=== PATIENT | female | born 1990 | race Caucasian/White ===

== ENCOUNTER 2021-04-25 12:14 | Outpatient (RCR) | payer BC, SELFPAY ==
[2021-04-18 15:43] VITALS: BP 128/75; PULSE 76
--- NOTE | ~2021-04-25 | US_ITS ---
EXAMINATION: US OB BPP wo non-stress EXAM DATE: 04/25/2021 13:30 INDICATION: Nonreactive stress test. 3rd trimester. TECHNIQUE: Pelvic obstetrical transabdominal sonogram was performed by a technologist. There are mu ltiple grayscale and Doppler images available for interpretation. Comparison is made to prior examina tion from 04/18/2021. FINDINGS: There is a single fetus identified in vertex presentation with a heart rate of 144 beats pe r minute. The placenta is located in the anterior position. There is no sonographic evidence of retr oplacental hemorrhage identified. BIOPHYSICAL PROFILE (performed by the technologist) breathing (30 sec sustained breathing in 30 minutes): 2 out of 2 movement (3 gross body movements in 30 minutes): 2 out of 2 tone (one episode of kddeetk-eqoerdmxb-ebxwbam limb movement): 2 out of 2 Amniotic fluid pocket (2 cm): 2 out of 2 Total score: 8 out of 8 IMPRESSION: 1. Single fetus with heart rate of 144 bpm. 2. Normal biophysical profile score of 8 out of 8. Reviewed, dictated and finalized at location B.
--- NOTE | ~2021-04-25 | US_ITS ---
EXAMINATION: US OB BPP wo non-stress EXAM DATE: 04/18/2021 15:43 INDICATION: Nonreactive stress test. 3rd trimester. TECHNIQUE: Pelvic obstetrical transabdominal sonogram was performed by a technologist. There are mu ltiple grayscale and Doppler images available for interpretation. There are no earlier studies of th is gestation for comparison. FINDINGS: There is a single fetus identified in vertex presentation with a heart rate of 141 beats pe r minute. The placenta is located in the fundal position. There is no sonographic evidence of retrop lacental hemorrhage identified. BIOPHYSICAL PROFILE (performed by the technologist) breathing (30 sec sustained breathing in 30 minutes): 2 out of 2 movement (3 gross body movements in 30 minutes): 2 out of 2 tone (one episode of mtdlcnk-eovgygvhw-usqhejx limb movement): 2 out of 2 Amniotic fluid pocket (2 cm): 2 out of 2 Total score: 8 out of 8 IMPRESSION: 1. Single fetus with heart rate of 141 bpm. 2. Normal biophysical profile score of 8 out of 8. Reviewed, dictated and finalized at location A.
[2021-04-25 14:05] VITALS: BP 122/74; PULSE 83
== END 2021-04-30 08:34 | disposition home or self-care (01) ==
LOC: ANHOBOP 12:14
PROVIDERS: Visit Provider Advanced Practice Midwife
DX: O26.893 Other specified pregnancy related conditions, third trimester (principal); Z3A.39 39 weeks gestation of pregnancy; Z3A.40 40 weeks gestation of pregnancy
CPT/HCPCS: 59025; 76819

== ENCOUNTER 2021-04-28 12:49 | Inpatient (IN) | payer BC, SELFPAY ==
[2021-04-28] VITALS (27 sets, daily range): BP systolic 125–176; BP diastolic 69–119; PULSE 77–120; TEMP 36.8–37.7; BMI 35.5
[2021-04-28 13:38] LABS: Basophils Percent Auto 0.4 % (0.2-1.2); Eosinophils Absolute Auto 0.2 K/mm3 (0-0.3); Eosinophils Percent Auto 2.2 % (0-4.4); Hematocrit 32.6 % (37.0-47.0); Immature Granulocyte Absolute 0.06 K/mm3 (0.00-0.031); Immature Granulocyte Percent A 0.7 % (0-0.5); Lymphocytes Absolute Auto 1.16 K/mm3 (0.9-3.2); Lymphocytes Percent Auto 14.2 % (18.3-44.2); Mean Corpuscular HGB Conc 33.7 g/dl (32-36); Mean Corpuscular Hemoglobin 30.6 pg (26-34); Mean Corpuscular Volume 90.6 fl (80-100); Mean Platelet Volume 11.3 fl (7.4-10.4); Monocytes Absolute Auto 0.7 K/mm3 (0.1-0.6); Monocytes Percent Auto 8.8 % (2.6-8.5); Neutrophils Percent Auto 73.7 % (45.5-73.1); Platelet Count Result 206 k/mm3 (150-375); Red Cell Distribution Width 13.8 % (11.5-14.5); White Blood Count 8.2 K/mm3 (4.5-10.0)
[2021-04-28] MEDS: LACTATED RINGERS 1,000 ML 125 ML IV CONT (14:07)
[2021-04-28] MEDS: OXYTOCIN 30 UNITS/NS 500 ML 30 UNITS/500 ML BAG 4 UNITS IV CONT (14:12)
[2021-04-28 14:18] LABS: Alanine Aminotransferase 16 U/L (4-35); Albumin Level 3.3 g/dL (3.5-5.1); Alkaline Phosphatase 218 U/L (38-126); Anion Gap 8 mmol/L (8-16); Aspartate Amino Transferase 30 U/L (14-36); Bilirubin,Total 0.5 mg/dL (0.2-1.3); Blood Urea Nitrogen 12 mg/dL (7-17); Calcium 9.8 mg/dL (8.4-10.2); Carbon Dioxide 20 mmol/L (22-30); Chloride 107 mmol/L (98-107); Estimated CRCL calculation 107 ml/min; Estimated Glomerular Filt Rate > 60; Glucose 104 mg/dL (65-110); Potassium 3.9 mmol/L (3.4-5.0); Sodium 135 mmol/L (137-145)
--- NOTE | 2021-04-28 14:29 | P.HP_ITS ---
Obstetrics - Admit Note Admission Note: 31 y/o G1 @ 41weeks here for induction of labor d/t post dates and elevated blood pressure. AROM moderate amount of light meconium stained fluid. record reviewed. No pertinent additions to the history and/or any subsequent changes in the physical findings that are not consistent with the exp ected course of the were found. Additions to the history and/or subsequent changes in the physical findings follow. None.
--- NOTE | 2021-04-28 14:32 | LDADM ---
This patient, [place] Seg[place], was admitted to Labor/Delivery/Recovery 105 on 04/28/21 at 12:49. Plans for labor, pain management and were discussed with patient. Patient/family oriented to hospital policies and general routines including ID bracelet, bed and alarms, visiting hours, pain management, procedures, bathroom and other care routines, personal items, smoking policy, room service/diet and guest tray routines, infant security routines, and visiting hours. Patient/Family are encouraged to report perceived risks to care and to ask questions if they do not understand what they are told or what they should do. See OBIX for further documentation.
[2021-04-28 14:53] LABS: Amphetamine Screen Urine Negative (Negative); Barbiturate Screen Urine Negative (Negative); Benzodiazepines Screen Urine Negative (Negative); Cannabinoid Screen Urine Positive (Negative); Cocaine Screen Urine Negative (Negative); Methadone Screen Urine Negative (Negative); Opiate Screen Urine Negative (Negative); Phencyclidine Screen Urine Negative (Negative)
[2021-04-29] VITALS (311 sets, daily range): BP systolic 79–158; BP diastolic 26–121; PULSE 68–141; TEMP 36.9–38.2; O2SAT 94–100
[2021-04-29] MEDS: LACTATED RINGERS 1,000 ML 125 ML IV CONT ×4 (02:52→22:46)
--- NOTE | 2021-04-29 03:14 | WPDANESEPPF ---
Anes - Initial Pre Proc Eval Procedure: labor epidural Date/Time: 04/29/21 03:14 Surgeon: Patricio Mata MD Pre Op Diagnosis: labor pain Pre Op Diagnosis: IOL Patient Data Age: 31 Gender: F Height: 1.6 m Weight: 91 kg Last Vital Signs Temp 37.2 C 04/29/21 01:30 Pulse 92 04/29/21 03:13 BP 146/86 H 04/29/21 03:13 Pulse Ox 99 04/29/21 03:14 Allergies Allergy/AdvReac Type Severity Reaction Status Date / Time Penicillins Allergy Unknown Unknown Verified 03/21/21 15:34 Home Medications Medication Instructions Recorded Confirmed Type prenat.vits,landy,bgm-kcok-wsttb 1 tablet PO DAILY 03/21/21 04/18/21 History [ #2] Laboratory Tests 04/28/21 04/28/21 04/28/21 13:10 13:24 13:24 WBC 8.2 K/mm3 K/mm3 (4.5-10.0) RBC 3.60 M/mm3 L M/mm3 (4.2-5.4) Hgb 11.0 g/dL L g/dL (12.0-15.0) Hct 32.6 % L % (37.0-47.0) MCV 90.6 fl fl (80-100) MCH 30.6 pg pg (26-34) MCHC 33.7 g/dl g/dl (32-36) RDW 13.8 % % (11.5-14.5) Plt Count 206 k/mm3 k/mm3 (150-375) MPV 11.3 fl H fl (7.4-10.4) Immature Gran % (Auto) 0.7 % H % (0-0.5) Neut % (Auto) 73.7 % H % (45.5-73.1) Lymph % (Auto) 14.2 % L % (18.3-44.2) [place] % (Auto) 8.8 % H % (2.6-8.5) Eos % (Auto) 2.2 % % (0-4.4) Baso % (Auto) 0.4 % % (0.2-1.2) Lymph # (Auto) 1.16 K/mm3 K/mm3 (0.9-3.2) [place] # (Auto) 0.7 K/mm3 H K/mm3 (0.1-0.6) Eos # (Auto) 0.2 K/mm3 K/mm3 (0-0.3) Baso # (Auto) 0.0 K/mm3 K/mm3 (0.0-0.1) Abs Immat Gran (auto) 0.06 K/mm3 H K/mm3 (0.00-0.031) Absolute Neuts (auto) 6.0 K/mm3 K/mm3 (1.3-6.7) Absolute Nucleated RBC 0.0 K/mm3 K/mm3 (0.0-0.012) Nucleated RBC % 0.0 % % (0.0-0.2) Sodium Potassium Chloride Carbon Dioxide Anion Gap BUN Creatinine Estim Creat Clear Calc Estimated GFR Glucose Uric Acid Cancelled Calcium Total Bilirubin AST ALT Alkaline Phosphatase Total Protein Albumin Urine Opiates Screen Negative (Negative) Urine Methadone Screen Negative (Negative) Ur Barbiturates Screen Negative (Negative) Ur Phencyclidine Scrn Negative (Negative) Ur Amphetamine Screen Negative (Negative) U Benzodiazepines Scrn Negative (Negative) Urine Cocaine Screen Negative (Negative) U Cannabinoids Screen Positive A (Negative) RPR Blood Type Antibody Screen 04/28/21 04/28/21 04/28/21 13:24 13:24 13:24 WBC RBC Hgb Hct MCV MCH MCHC RDW Plt Count MPV Immature Gran % (Auto) Neut % (Auto) Lymph % (Auto) [place] % (Auto) Eos % (Auto) Baso % (Auto) Lymph # (Auto) [place] # (Auto) Eos # (Auto) Baso # (Auto) Abs Immat Gran (auto) Absolute Neuts (auto) Absolute Nucleated RBC Nucleated RBC % Sodium 135 mmol/L L mmol/L (137-145) Potassium 3.9 mmol/L mmol/L (3.4-5.0) Chloride 107 mmol/L mmol/L (98-107) Carbon Dioxide 20 mmol/L L mmol/L (22-30) Anion Gap 8 mmol/L mmol/L (8-16) BUN 12 mg/dL mg/dL (7-17) Creatinine 0.70 mg/dL mg/dL (0.7-1.0) Estim Creat Clear Calc 107 ml/min ml/min Estimated GFR > 60 (59 - ) Glucose 104 mg/dL mg/dL (65-1
[2021-04-29] MEDS: CLINDAMYCIN 900 MG/D5W 50 ML 900 MG/50 ML PIGGYBACK 50 MG IVPB ×3 (05:57→22:46)
[2021-04-29 12:35] LABS: Rapid Plasma Reagin Non-Reactive (NonReactive)
[2021-04-29] MEDS: ONDANSETRON INJ 4 MG/2 ML VIAL IV PUSH (12:59)
[2021-04-29] MEDS: OXYTOCIN 30 UNITS/NS 500 ML 30 UNITS/500 ML BAG 6 UNITS IV CONT (13:13)
[2021-04-30] VITALS (140 sets, daily range): BP systolic 90–177; BP diastolic 57–135; PULSE 74–119; RESP 11–18; TEMP 36.6–37.1; O2SAT 92–100
--- NOTE | 2021-04-30 04:28 | WPDANESEFPP ---
Anes - Eval Final PreProcedure Day of Procedure 04/30/21 04:28 Patient weight: obese Heart: regular rate and rhythm Lungs: clear to auscultation and normal air movement Airway: Mallampati scale Neurological: alert and oriented Last oral intake: >/= 8 hours ASA classification: II Emergent: no Anesthetic plan: proceed Anesthesia type and monitoring: regional epidural and standard monitoring Informed Consent: The patient's anesthetic plan and its attendant risks and benefits were discussed with the patient/family/POA. Questions were solicited and answers provided to the satisfaction of the patient/family/POA.
--- NOTE | 2021-04-30 04:35 | WPDHPUPDATE1 ---
History and Physical Update Update Date/Time: 04/30/21 04:35 History and Physical has been reviewed, including an updated exam of the patient. There are NO changes in the patient's condition. Risks, benefits, and alternatives have been discussed and questions answered. Patient agrees to proceed with procedure.\ Briefly, G1 at 41+ weeks with IOL for 2+ days. Has been up to 40mu of pitocin 3x, most recently for 3+ hours and not progressing past 8cm. Cervix now edematous. On antibiotics for prolonged rupture. FHT category 1, no decels. Afebrile. Previously declined CS but now ready to proceed. Discussed RBA of delivery. QUestions answered, pt consented.
--- NOTE | 2021-04-30 05:39 | P.PCNOB_ITS ---
OB - Delivery Note Procedure Delivery date: 04/30/21 Procedure: Procedures Operation Date: 04/30/21 04:30 <No data on this case meets the specified criteria> Primary section events: Prolonged Rupture of Membrane and Meconium Stained Fluid Intrapartal events: Prolonged Labor > 20 hours and Failure to Progress in Labor Induction method: AROM, per pitocin protocol and per cervidil protocol Delivery monitor: external FHT and external uterine Route of delivery: Specimen: Yes (placenta) Quantitative Blood Loss (ml): 2,225 Anesthesia type: Epidural Disposition: floor Complications: none Narrative: The patient was taken to the OR and had her epidural anesthesia dosed adequately. She was placed in dorsal supine position with left lateral tilt. SCDs and huitron had been placed. She was prepped and draped in the normal sterile fashion. A Pfannensteil skin incision was made and carried through to the underlying l michelle of fascia. The fascia was incised in the midline and then extended laterally using August scissors. The muscles were in the midline and the peritoneum was entered bluntly. The peritoneal incision was extended inferiorly and superiorly with care to avoid the bladder. The bladder blade was then inserted, the vesicouterine peritoneum was grasped, incised with Metzenbaum scissors, and a bladder flap created. The bladder blade was reinserted. A low transverse uterine incision was made with a scalpel and extended bluntly. AROM was performed and fluid was noted to be thickly meconium stained. The head was delivered, followed by the remainder of the baby. The baby's oropharynx was suctioned. After 30 seconds, the cord was clamped and cut and the infant was handed off. Cord blood was obtained and the placenta was then removed manually. The uterus was exteriorized. A moist lap sponge was used to curette the endometrium. The uterine incision was then closed with one layer of 0-Vicryl in a running, locking fashion. Good hemostasis was noted. The posterior cul de sac was irrigated with normal saline and cleared of all clot and debris. The uterus was returned to the abdomen. Both lateral gutters were then irrigated. The rectus muscles were inspected and found to be hemostatic. The fascia was reapproximated using 0-Vicryl in running fashion. The subcutaneous tissue was irrigated with normal saline and made hemostatic with Bovie electrocautery. The skin was then closed with absorbable cindy. Steri strips and a bandage were applied. The uterus was evacuated. The patient tolerated the procedure very well. All counts were correct. She was taken to the recovery room in good condition. Baby Date of : 04/30/21 Time of : 05:03 Weeks of gestation at delivery: 41 Infant gender: Female Weight (pounds): 9 Weight (ounces): 7 presentation: vertex Placenta delivery description: Manual Removal cord vessel description: 3 Vessels score one minute: 7 score five minutes: 8
[2021-04-30] MEDS: miSOPROStol 200 MCG TABLET 800 MCG RECTAL (05:56)
[2021-04-30] MEDS: miSOPROStol 200 MCG TABLET 800 MCG (05:56)
[2021-04-30 06:25] LABS: Hematocrit 28.9 % (37.0-47.0); Hemoglobin 9.7 g/dL (12.0-15.0); Mean Corpuscular HGB Conc 33.6 g/dl (32-36); Mean Corpuscular Hemoglobin 31.2 pg (26-34); Mean Corpuscular Volume 92.9 fl (80-100); Mean Platelet Volume 11.3 fl (7.4-10.4); Platelet Count Result 171 k/mm3 (150-375); Red Blood Count 3.11 M/mm3 (4.2-5.4); Red Cell Distribution Width 14.2 % (11.5-14.5); White Blood Count 18.8 K/mm3 (4.5-10.0)
[2021-04-30] MEDS: MORPHINE SULFATE (*CRX) 2 MG/ML INJ IV PUSH ×2 (06:27→06:43)
[2021-04-30 06:45] LABS: Prothrombin Time 13.5 Seconds (11.1-14.7)
[2021-04-30 08:04] LABS: Fibrinogen 352 mg/dl (215-510)
--- NOTE | 2021-04-30 13:50 | PC.NURSE ---
Mother called out for assist with feeding. Mother reports difficulties with latching to left breast. Mother states she has concerns with using cross cradle feeling infant can not breath while feeding. Discussed both positions for latch, suggesting mother try both and will assist with position so infant's nose is free from breast tissue. is able to freely thrust tongue past gum ridge and flange both lips. Skin is intact on both nipples, no redness and bruising noted. Left nipple has less profile than right. Reviewed feeding cues, frequencies, duration of feedings, feeding elimination flow sheet, and signs of adequate intake. Demonstrated stimulation techniques to wake infant for feeding. Assisted with infant to breast. Reviewed positioning/alignment in cross cradle, holding breast in ?U? hold and guided asymmetrical latch on. Reviewed mother's thumb will make a space for infant's nose to be clear of breast tissue. Discussed rational for each. Infant able to latch correctly within a few attempts. Infant nursed eagerly, with steady draws and frequent swallowing noted. Suggested mother stimulate while feeding to increase stimulate, increase intake and to assist with maintaining deep latch. Reviewed signs of a correct latch, effective nursing and suck swallow ratio. Infant would slip to shallow latch, mother reports tenderness. Demonstrated how to adjust latch more deeply while feeding. Mother reports she can feel change in latch and has no tenderness. Nipple care reviewed of lanolin after feedings, warm compresses as needed. Instructed mother to call out for RN assistance if she is unable to latch for feeding or she has discomfort with nursing.
[2021-04-30] MEDS: KETOROLAC 30 MG/ML VIAL (*BKC) IV PUSH (18:03)
[2021-05-01] MEDS: HYDROcodone/acetaminophen (*CRX) 5-325 MG TABLET 1 TAB PO ×4 (00:18→22:57)
[2021-05-01] MEDS: LANOLIN (LANSINOH) 7.5 GM CREAM 1 APPLIC TOPICAL (00:18)
[2021-05-01] MEDS: IBUPROFEN 600 MG TABLET PO ×4 (03:32→22:56)
[2021-05-01 03:35] VITALS: BP 135/74; PULSE 94; RESP 16; TEMP 36.7; O2SAT 97
[2021-05-01 05:41] LABS: Basophils Percent Auto 0.2 % (0.2-1.2); Eosinophils Absolute Auto 0.3 K/mm3 (0-0.3); Eosinophils Percent Auto 2.5 % (0-4.4); Immature Granulocyte Absolute 0.12 K/mm3 (0.00-0.031); Lymphocytes Absolute Auto 1.26 K/mm3 (0.9-3.2); Lymphocytes Percent Auto 10.3 % (18.3-44.2); Mean Corpuscular Hemoglobin 30.4 pg (26-34); Mean Corpuscular Volume 92.1 fl (80-100); Mean Platelet Volume 11.2 fl (7.4-10.4); Monocytes Absolute Auto 1.1 K/mm3 (0.1-0.6); Monocytes Percent Auto 9.1 % (2.6-8.5); Neutrophils Absolute Auto 9.4 K/mm3 (1.3-6.7); Neutrophils Percent Auto 76.9 % (45.5-73.1); Platelet Count Result 182 k/mm3 (150-375); Red Blood Count 2.27 M/mm3 (4.2-5.4); Red Cell Distribution Width 14.2 % (11.5-14.5); White Blood Count 12.2 K/mm3 (4.5-10.0)
[2021-05-01 05:59] LABS: Hematocrit 20.9 % (37.0-47.0); Hemoglobin 6.9 g/dL (12.0-15.0)
[2021-05-01 08:45] VITALS: BP 140/62; PULSE 99; RESP 16; TEMP 36.8; O2SAT 100
--- NOTE | 2021-05-01 09:02 | PM.OBPNVD ---
OB - PN: Subj Subjective Date/time seen: 05/01/21 09:02 Patient comments: no complaints, pain well controlled, tolerating diet and flatus present OB - PN: Obj Data Labs CBC & Chem 7: 05/01/21 03:48 04/28/21 13:24 Labs: Laboratory Results - last 24 hr 05/01/21 03:48 WBC 12.2 H RBC 2.27 L Hgb 6.9 L* Hct 20.9 L* MCV 92.1 MCH 30.4 MCHC 33.0 RDW 14.2 Plt Count 182 MPV 11.2 H Immature Gran % (Auto) 1.0 H Neut % (Auto) 76.9 H Lymph % (Auto) 10.3 L [place] % (Auto) 9.1 H Eos % (Auto) 2.5 Baso % (Auto) 0.2 Lymph # (Auto) 1.26 [place] # (Auto) 1.1 H Eos # (Auto) 0.3 Baso # (Auto) 0.0 Abs Immat Gran (auto) 0.12 H Absolute Neuts (auto) 9.4 H Absolute Nucleated RBC 0.0 Nucleated RBC % 0.0 OB - PN A/P Plan day: 1 Comments: Post Op LTCS - no problems, routine recovery Time Spent With Patient Time: Total time spent is greater than 50% in coordination of care (as documented) at patient's floor/unit and/or counseling patient: Exam Const: General: cooperative, healthy appearing, comfortable and no acute distress Resp: Auscultation: no crackles, no rales, no rhonchi and no wheezes Cardio: Rhythm: regular rhythm Heart sounds: no click and no murmurs GI: Inspection: non-distended Auscultation: normal bowel sounds Extrem: General: normal to inspection, no pedal edema and no calf tenderness
[2021-05-01] MEDS: MULTIVIT/MIN/PREN/FOL AC/IRON TABLET 1 TAB PO (09:13)
[2021-05-01] MEDS: POLYSACCHARIDE IRON COMPLEX 150 MG CAPSULE PO ×2 (09:13→16:35)
[2021-05-01] MEDS: DOCUSATE SODIUM 100 MG CAPSULE PO ×2 (09:13→16:35)
--- NOTE | 2021-05-01 09:46 | WPDANLDNPN2 ---
Anes-Prog Note L&D-Neuraxial Date/Time: 05/01/21 09:46 Neuraxial medications: epidural PF morphine Opiod-related complaints: none Patient feedback: Patient satisfied with post-operative pain management.
--- NOTE | 2021-05-01 09:47 | WPDANLDPN2 ---
Anes-Prog Note L&D Date/Time: 05/01/21 09:47 Comfortable throughout: labor, delivery and section Neuraxial method: epidural Epidural/Spinal procedure site: clean & non-tender Neuro status: Neuro function grossly intact. Cardiovascular status: normal Respiratory status: normal Airway patency: baseline Mental status: baseline Post-Op hydration status: normal Vital Signs: Last Vital Signs Temp 36.8 C 05/01/21 08:45 Pulse 99 05/01/21 08:45 Resp 16 05/01/21 08:45 BP 140/62 05/01/21 08:45 Pulse Ox 100 05/01/21 08:45 Pain score (VAS): 0 I/O: Intake & Output 04/30/21 05/01/21 05/01/21 23:59 07:59 15:59 Intake Total 1080 600 Output Total 1250 975 675 [facility] -[phone] Post-procedural complaints: none Patient feedback: Patient satisfied with anesthetic care.
--- NOTE | 2021-05-01 09:50 | PC.NURSE ---
Mother called out for assist with feeding. Mother reports infant is sleepy and continues to have issues latching to left nipple. Discussed gentle stimulation to nipple to draw out before attempting to latch. Reviewed feeding cues, frequencies, duration of feedings, feeding elimination flow sheet, and signs of adequate intake. Demonstrated stimulation techniques to wake for feeding. Assisted with to breast. Reviewed positioning/alignment in cross cradle, holding breast in ?U? hold and guided asymmetrical latch on. Discussed rational for each. Infant able to latch correctly. nursed eagerly, with steady draws and frequent swallowing noted. Suggested mother stimulate while feeding to increase stimulation, increase intake and to assist with maintaining deep latch. Reviewed signs of a correct latch, effective nursing and suck swallow ratio. Infant would slip to shallow latch, mother reports tenderness. Demonstrated how to adjust latch more deeply while feeding. Mother reports she can feel change in latch and has no tenderness. Nipple care reviewed of lanolin after feedings, warm compresses as needed. Instructed mother to call out for RN assistance if she is unable to latch infant for feeding or she has discomfort with nursing.
--- NOTE | 2021-05-01 12:35 | PCCCNOTE ---
Care Coordination note. Pt. referred to Care Coordination for positive UDS of marijuana. Meconium pending for baby. Pt. reports she does not use marijuana all the time and denies any abuse issues with it. She plans to return home with FOB and reports being more that setup for baby to return home. She reports all necessary baby care items and more including crib, bassinet, clothes, diapers, etc. She plans to breastfeed at this time. She reports her family and FOB's family are very supportive. She denies WIC as she reports over resourced to qualify for service. Spoke with Darrion Ahuja at [facility] hotline and she took pt.'s situation as information only Intake ID# [id number]. RN aware.
[2021-05-01 20:45] VITALS: BP 146/80; PULSE 77; RESP 18; TEMP 36.8; O2SAT 100
[2021-05-02] VITALS (10 sets, daily range): BP systolic 122–148; BP diastolic 76–91; PULSE 68–91; RESP 16–20; TEMP 36.6–37.4; O2SAT 99–100
--- NOTE | 2021-05-02 07:33 | PM.OBPNVD ---
OB - PN: Subj Subjective Date/time seen: 05/02/21 07:33 Patient comments: no complaints baby status: doing well OB - PN: Obj Data Labs CBC & Chem 7: 05/01/21 03:48 04/28/21 13:24 OB - PN A/P Plan day: 2 Plan: routine care and discharge home Time Spent With Patient Time: Total time spent is greater than 50% in coordination of care (as documented) at patient's floor/unit and/or counseling patient: Review of Systems Review of Systems: All systems reviewed & are unremarkable except as noted in HPI and below Exam Narrative: incision CDI Const: General: cooperative Psych: Thought process: Normal thought process present Thought content: Yes Normal thought content present Insight: Good insight present (Psych) Judgement: Good judgement present (Psych)
--- NOTE | 2021-05-02 08:30 | PC.NURSE ---
Consult with pt., mother reports she is able to latch to left breast with minimal difficulties. Infant is currently o left breast . Mother was able to independently latch with appropriate positioning/alignment. She denies any nipple discomfort, is feeding as required and waking to feed if needed. Infant nursed eagerly, with steady draws and occasional swallowing noted. Reviewed signs of a correct latch, effective nursing and suck swallow ratio. Infant was able to maintain latch without discomfort to mother. Mother is concerned the last few feedings infant has nursed for 60+ minutes on both breasts and is not satisfied. Mother is tired and will get blood this am. Mother wishes to supplement after feedings. Discussed mother's QBL after delivery and suggested 1 oz paced after each feeding.
[2021-05-02] MEDS: DOCUSATE SODIUM 100 MG CAPSULE PO ×2 (08:40→16:16)
[2021-05-02] MEDS: IBUPROFEN 600 MG TABLET PO ×2 (08:40→16:17)
[2021-05-02] MEDS: POLYSACCHARIDE IRON COMPLEX 150 MG CAPSULE PO ×2 (08:40→16:16)
[2021-05-02] MEDS: HYDROcodone/acetaminophen (*CRX) 5-325 MG TABLET 1 TAB PO ×2 (08:40→16:16)
[2021-05-02] MEDS: MULTIVIT/MIN/PREN/FOL AC/IRON TABLET 1 TAB PO (08:40)
[2021-05-02] MEDS: SODIUM CHLORIDE 0.9% IV 250 ML 30 ML IV CONT (12:30)
[2021-05-02] MEDS: SODIUM CHLORIDE 0.9% IV 250 ML 30 ML (16:18)
[2021-05-02 20:12] LABS: Basophils Percent Auto 0.4 % (0.2-1.2); Eosinophils Absolute Auto 0.4 K/mm3 (0-0.3); Eosinophils Percent Auto 3.9 % (0-4.4); Hematocrit 25.7 % (37.0-47.0); Hemoglobin 8.6 g/dL (12.0-15.0); Immature Granulocyte Absolute 0.13 K/mm3 (0.00-0.031); Immature Granulocyte Percent A 1.4 % (0-0.5); Mean Corpuscular HGB Conc 33.5 g/dl (32-36); Mean Corpuscular Hemoglobin 30.6 pg (26-34); Mean Corpuscular Volume 91.5 fl (80-100); Monocytes Absolute Auto 0.6 K/mm3 (0.1-0.6); Monocytes Percent Auto 6.8 % (2.6-8.5); Neutrophils Absolute Auto 6.6 K/mm3 (1.3-6.7); Neutrophils Percent Auto 70.5 % (45.5-73.1); Platelet Count Result 256 k/mm3 (150-375); Red Blood Count 2.81 M/mm3 (4.2-5.4); Red Cell Distribution Width 14.1 % (11.5-14.5); White Blood Count 9.4 K/mm3 (4.5-10.0)
[2021-05-02 20:28] LABS: Alanine Aminotransferase 22 U/L (4-35); Albumin Level 2.8 g/dL (3.5-5.1); Alkaline Phosphatase 126 U/L (38-126); Anion Gap 4 mmol/L (8-16); Aspartate Amino Transferase 50 U/L (14-36); Bilirubin,Total 0.4 mg/dL (0.2-1.3); Blood Urea Nitrogen 18 mg/dL (7-17); Calcium 8.4 mg/dL (8.4-10.2); Carbon Dioxide 24 mmol/L (22-30); Chloride 105 mmol/L (98-107); Estimated CRCL calculation 77 ml/min; Estimated Glomerular Filt Rate > 60; Glucose 89 mg/dL (65-110); Potassium 4.2 mmol/L (3.4-5.0); Sodium 133 mmol/L (137-145)
[2021-05-05 10:20] VITALS: BP 136/88; PULSE 68; RESP 18; TEMP 37.3; O2SAT 100
--- NOTE | 2021-05-05 11:23 | PM.OBDSVD ---
DS: Admitting Diagnosis Admitting Diagnosis MIL, HTN OB - DS: Summary OB Procedures : None OB Procedures Intrapartum: OB Procedures: : Transfusion Peripartum Data Procedures: Procedures Operation Date: 04/30/21 04:30 Actual Procedure Side Surgeon p Section Not Applicable Lisa Romero MD Time Spent with Patient Time attestation: Total time spent providing and/or coordinating discharge services: DS: Data Data Completed and Pending Completed studies during hospitalization: Pending at discharge 04/30/21 05:04 Surgical [PTH] Routine Discharge Plan Discharge Attending physician on discharge: Patricio Mata Discharging Clinician: Renu Reilly Patient Disposition: Home, Self-Care Activity: pelvic rest Diet: regular Discharge Instructions: Education: Mom and Baby Guide Given to: Mother Follow-Up: Call your delivering provider's office for an appointment to be seen in: 2 Weeks Mom and baby should come to the [facility] for the follow-up appointment. Appointment Date/Time: May 05, 2021 at 10:00 am What to expect at your follow-up visit: Blood Pressure Check Physical Assessment Blood Draw: CBC, Uric Acid, CMP Call [phone] if you are unable to keep your appointment time. BREAST CARE: * Wear a snug supportive bra. * For engorgement discomfort: Breast Feeding: * Apply warm moist washcloths * Express milk as needed to relieve engorgement * Wear loose clothing Bottle Feeding: * May apply ice packs * For sore nipples: * Identify correct latch-on * Apply warm moist washcloths before and after nursing * Air dry nipples after nursing * May apply Lansinoh cream to nipples ABDOMINAL INCISION: (if applicable) * Allow incision to air dry * Do NOT use lotions for powders on your incision * When showering, allow soap and water to run over the incision, but do not wash incision EPISIOTOMY/PERINEAL CARE: * Until bleeding stops, use your lorena bottle after urinating * Change your pad frequently throughout the day * You may take sitz baths several times a day (fill your bathtub with warm water and soak for 20 minutes.) Do NOT bathe in the water * No tub baths until seen by your physician - You may shower ACTIVITY: * Rest as much as possible. * Do not exercise or lift anything heavier than your baby (such as laundry or other children.) * Avoid stairs or driving as much as possible. * Do not put anything into the vagina. No douching, tampons, or sexual activity until seen by physician. NOTIFY PHYSICIAN IF YOU HAVE ANY QUESTIONS OR IF ANY OF THE FOLLOWING SYMPTOMS OCCUR: *Check Blood pressure every 4 hours until follow up visit. If it is ever above 150/100 contact the after hours line. If any of the above occurs contact your doctor - Headache -Visual Changes -Epigastric pain -Increased swelling -Blood Pressure 150/100 or above * If your episiotomy or incision becomes red, swollen, or more painful than what you have experienced in the hospital. * If your vaginal bleeding becomes foul smelling. * If your vaginal bleeding becomes more heavy than a period or if your bleeding changes from pink to bright red. However, you may pass an occasional walnut-sized clot once or twice for the first week . * If you experience a sharp, shooting pain in you calves. * If you discover a hard, reddened area on your breast or if you experience flu-like symptoms. DIET: * Eat regular, well-balanced meals. * Drink plenty of fluids daily. If , drink to thirst. Stand Alone Forms: General Discharge Information Follow-up/Referrals: Patricio Mata MD [Physician] - 1 Week Discharge Medications: New hydrocodone-acetaminophen 5-325 mg Tablet 1 tablet PO Q3H PRN (Reason: Moderate Pain (4-6)) Qty: 20 RF: 0 polysaccha
--- NOTE | 2021-05-09 07:31 | PM.IMHP ---
H&P: HPI History of Present Illness Date/Time: 05/09/21 07:31 Chief Complaint: CS Narrative: see my progress note for details. Review of Systems Review of Systems: All systems reviewed & are unremarkable except as noted in HPI and below PMFSH Family History Family History (Updated 03/21/21 @ 15:36 by Tate Avila RN) Grandparent Asthma Breast cancer in female Pancreatic adenocarcinoma Mother Asthma Sibling Asthma Social History Social History Smoking status: Never smoker Second hand tobacco smoke exposure: Yes Substance use: current Last use: 03/20/21 Spiritual care concerns: No Meds Home Medications and Allergies Home Medications Medication Instructions Recorded Confirmed Type prenat.vits,landy,ach-jwyh-fjbph 1 tablet PO DAILY 03/21/21 04/18/21 History hydrocodone-acetaminophen 1 tablet PO Q3H PRN #20 tablet 05/02/21 Rx ibuprofen 600 mg PO Q6H PRN #30 tablet 05/02/21 Rx polysaccharide iron complex 150 mg PO BIDWM #60 cap 05/02/21 Rx Allergies Allergy/AdvReac Type Severity Reaction Status Date / Time Penicillins Allergy Unknown Unknown Verified 03/21/21 15:34 Exam Const: General: no acute distress Resp: Effort & Inspection: normal respiratory effort Auscultation: clear to auscultation bilaterally Cardio: Rate: regular rate Rhythm: regular rhythm GI: GI Palp: Yes Soft to palpation Extrem: General: normal to inspection Assessment and Plan Assessment and plan (1) Failure to progress in labor: Code(s): O62.2 - Other uterine inertia Status: Acute Additional Plan Will proceed with primary CS, discussed RBA per my other note.
== END 2021-05-02 21:55 | disposition home or self-care (01) | DRG 786 ==
LOC: ANHLDR 04-29 15:06 → ANHOB2 04-30 08:21
PROVIDERS: Advanced Practice Midwife; Obstetrics & Gynecology; Admitting Provider Obstetrics & Gynecology; Visit Provider Obstetrics & Gynecology
PROC: 10D00Z1 Extraction of Products of Conception, Low, Open Approach (ICD-10-PCS; CPT 59514; principal; 2021-04-30 04:30)
DX: O62.0 Primary inadequate contractions (principal); O41.1230 Chorioamnionitis, third trimester, not applicable or unspecified; O77.0 Labor and delivery complicated by meconium in amniotic fluid; O42.92 Full-term premature rupture of membranes, unspecified as to length of time between rupture and onset of labor; O76 Abnormality in fetal heart rate and rhythm complicating labor and delivery; Z3A.41 41 weeks gestation of pregnancy; Z37.0 Single live birth
CPT/HCPCS: 36415; 36430; 59025; 76819; 80053; 80307; 84550; 85025; 85027; 85384; 85610; 85730; 86592; 86850; 86900; 86901; 86920; 88307; A9270; J0131; J1885; J2270; J2274; J2405; J2590; J2795; J7050; J7120; P9016

== ENCOUNTER 2021-05-05 10:37 | Outpatient (CLI) | payer BC, SELFPAY ==
[2021-05-05 11:07] LABS: Hematocrit 30.9 % (37.0-47.0); Hemoglobin 10.3 g/dL (12.0-15.0); Mean Corpuscular HGB Conc 33.3 g/dl (32-36); Mean Corpuscular Hemoglobin 30.2 pg (26-34); Mean Corpuscular Volume 90.6 fl (80-100); Mean Platelet Volume 9.1 fl (7.4-10.4); Platelet Count Result 337 k/mm3 (150-375); Red Blood Count 3.41 M/mm3 (4.2-5.4); Red Cell Distribution Width 13.8 % (11.5-14.5); White Blood Count 13.3 K/mm3 (4.5-10.0)
[2021-05-05 11:10] LABS: Alanine Aminotransferase 34 U/L (4-35); Albumin Level 3.5 g/dL (3.5-5.1); Alkaline Phosphatase 148 U/L (38-126); Anion Gap 7 mmol/L (8-16); Aspartate Amino Transferase 49 U/L (14-36); Bilirubin,Total 0.5 mg/dL (0.2-1.3); Blood Urea Nitrogen 14 mg/dL (7-17); Carbon Dioxide 24 mmol/L (22-30); Chloride 103 mmol/L (98-107); Estimated Glomerular Filt Rate > 60; Glucose 82 mg/dL (65-110); Potassium 4.3 mmol/L (3.4-5.0); Sodium 134 mmol/L (137-145)
== END 2021-05-05 10:38 | disposition home or self-care (01) ==
LOC: ANHOBOP 10:39
PROVIDERS: Visit Provider Advanced Practice Midwife
DX: Z34.90 Encounter for supervision of normal pregnancy, unspecified, unspecified trimester (principal); Z3A.00 Weeks of gestation of pregnancy not specified
CPT/HCPCS: 36415; 80053; 84550; 85027